=== PATIENT | male | born 1930 | race Caucasian/White ===

== ENCOUNTER → 2016-03-07 | Outpatient (CLI) | payer BC, OTHER ==
[~2016-03-07] MED LIST: ASPEC81 PO; ASPI-232 PO; ATOR10TA88 PO; CEFD1CAP14 PO; CHOL1000 PO; CPR500 OR; LCTX PO; MULT-506 PO
[2016-03-07 15:35] LABS: BASO % 0.2 %; BASO ABS # 0.02 K/uL (0-0.2); COMPLETE YES; EOS % 1.1 %; HEMATOCRIT 45.7 % (42-52); IG% 0.4 %; LYMPH % 10.8 %; LYMPH ABS # 1.16 K/uL (1.2-3.4); MEAN CELL VOLUME 88.1 fL (80-100); MEAN CORPUSCULAR HGB CONC 35.2 g/dl (32-36); MEAN PLATELET VOLUME 10.4 fL (7.4-10.4); MONO % 14.2 %; NEUT % 73.3 %; PLATELET COUNT 174 K/uL (130-400); RED BLOOD COUNT 5.19 M/uL (4.7-6.1); WHITE BLOOD COUNT 10.72 K/uL (4.8-10.8)
[2016-03-07 15:56] LABS: ALT/SGPT 20 U/L (12-78); BLOOD UREA NITROGEN 27 mg/dl (7-18); BUN/CREATININE RATIO 17.7 (10-20); CARBON DIOXIDE 22 mmol/L (21-32); CHLORIDE 105 mmol/L (98-107); CHOLESTEROL 130 mg/dl (0-200); GLUCOSE 97 mg/dl (70-99); POTASSIUM 3.8 mmol/L (3.5-5.1); SODIUM 138 mmol/L (136-145); TRIGLYCERIDES 130 mg/dl (0-150); VERY LOW DENSITY LIPOPROT CALC 26 mg/dl
[2016-03-07 16:07] LABS: ALB/GLOB RATIO 0.9 (0.9-2); ALKALINE PHOSPHATASE 69 U/L (45-117); AST/SGOT 20 U/L (15-37); CHOLESTEROL/HDL RATIO 2.5; HDL CHOLESTEROL 51 mg/dl; LDL CHOLESTEROL CALCULATED 53 mg/dl
[2016-03-07 20:00] LABS: URINE APPEARANCE CLEAR (CLEAR); URINE COLOR DK YELLOW; URINE NITRITE NEG (NEG); URINE PH 6.5 (4.5-7.5); URINE SPECIFIC GRAVITY 1.009 (1.000-1.030); UROBILINOGEN NEG (NEG); ZZUR CULT IF INDIC CLEAN CATCH YES
[2016-03-07 20:01] LABS: MANUAL MICROSCOPIC REQUIRED? NO; REVIEW REQ? YES; URINE BILIRUBIN 3+ (NEG)
--- NOTE | 2016-03-13 09:00 | CODING QUERY MEDICAL NECESSITY ---
SUPPORTING DIAGNOSIS NEEDED Dr. Allen, A supporting diagnosis is required for the test/procedure performed on this patient in order for us to be reimbursed by the patient's insurance. Please provide a supporting diagnosis for the following test/procedure listed below next to the test name along with your signature. *If there is no additional diagnosis for this patient that would support the following test/procedure please document that below next to the test/procedure. Test(s)/Procedure(s) that require a supporting diagnosis: * ([id number]) VITAMIN D ASSAY DIAGNOSIS: DATE OF SERVICE: 03/07/16 Provider Signature: Date: Thank you Wilbert Alcantara [facility] Information Management Once completed, please kindly fax back to [phone] For questions please call [phone]
== END | disposition home or self-care (01) ==
LOC: C.LAB 14:02
PROVIDERS: ATTEND Internal Medicine Geriatric Medicine
DX: N20.9 Urinary calculus, unspecified (principal); E78.5 Hyperlipidemia, unspecified; I10 Essential (primary) hypertension; I25.10 Atherosclerotic heart disease of native coronary artery without angina pectoris; K76.0 Fatty (change of) liver, not elsewhere classified; M19.90 Unspecified osteoarthritis, unspecified site; R16.1 Splenomegaly, not elsewhere classified; E55.9 Vitamin D deficiency, unspecified

== ENCOUNTER → 2016-03-14 | Outpatient (CLI) | payer BC | END | disposition home or self-care (01) | LOC: C.LAB 10:07 | PROVIDERS: ATTEND Internal Medicine Geriatric Medicine | DX: R19.7 Diarrhea, unspecified (principal) ==

== ENCOUNTER → 2016-03-26 | Outpatient (CLI) | payer BC | END | disposition home or self-care (01) | LOC: C.LAB 13:34 | PROVIDERS: ATTEND Internal Medicine Geriatric Medicine | DX: N39.0 Urinary tract infection, site not specified (principal) ==

== ENCOUNTER → 2016-05-07 | Outpatient (CLI) | payer BC | END | disposition home or self-care (01) | LOC: C.LABBC 16:54 | PROVIDERS: ATTEND Physician Assistant | DX: N39.0 Urinary tract infection, site not specified (principal) ==

== ENCOUNTER → 2016-08-13 | Day surgery (SDC) | payer BC ==
[2016-08-05 16:20] VITALS: Ht 182.9 cm; Wt 90.9 kg
[~2016-08-13] VITALS: Ht 182.9 cm; Wt 90.9 kg
[~2016-08-13] MED LIST changes: +500ML BSS 0.3ML EPI 1:1000PF IRRIG ONE; +ACETAMINOPHEN 325 MG TAB PO PRN; +AMVISC PLUS 0.8ML SYRINGE INT OCU ONE; +ATOR10TA82 PO; -ATOR10TA88 PO; +ATROPINE SULFATE 0.1 MG/ML 5ML SYR IV PRN; +AcetaZOLAMIDE 250 MG TAB PO SCH; +BETAXOLOL HCL 0.25% OP SUSP PER DROP CHARGE OPR SCH; +BRIMONIDINE TART 0.2% OP SOLN PER DROP CHARGE ONE; +BSS FLUSH ONE; -CPR500 OR; +ENDOCOAT 0.85ML SYRINGE INT OCU ONE; +EpHEDrine SULFATE INJ 50 MG/ML AMP IV PRN; +EpINEphrine INJ 1MG/ML AMP 1 MG/ML AMP ONE; +LACTATED RINGER'S 1000ML 500 ML IV SCH; +LIDOCAINE 4% OP SOLN DROP CHARGE ONE; +LIDOCAINE 4% OP SOLN DROP CHARGE OPR SCH; +LIDOCAINE HCL 1% MPF 2 ML VIAL ONE; +MIDAZOLAM HCL 1 MG/ML 2ML VIAL ONE; +MIX: 4ML BSS 1ML EPI 1:1000 PF INSTIL ONE; +MOXIFLOXACIN OPH SOLN PER DROP CHARGE ONE; +OCUCOAT 1 ML SOLN IO ONE; +POVIDONE-IODINE OP SOLN 30 ML BTL ONE; +PROPARACAINE 0.5% OP SOLN PER DROP CHARGE OPR SCH; +TOBRAMYCIN/DEXAMETHASONE OPH OINT PER APPLN CHARGE ONE
--- NOTE | 2016-08-13 06:18 | History & Physical Bridge - SC ---
H&P Re-Evaluation Bridge Note: I have examined the patient, reviewed the History & Physical and in the interval since the performance of the History & Physical I have noted the following changes of clinical significance: No changes noted
[2016-08-13] MEDS: PHENYLEPHRINE HCL 2.5% OP SOLN PER DROP CHARGE OPR SCH ×2 (06:43→06:50)
[2016-08-13] MEDS: TROPICAMIDE 1% OP SOLN PER DROP CHARGE OPR SCH ×2 (06:45→06:51)
[2016-08-13] MEDS: CYCLOPENTOLATE HCL 1% OP SOLN PER DROP CHARGE OPR SCH ×2 (06:47→06:52)
[2016-08-13] MEDS: MOXIFLOXACIN OPH SOLN PER DROP CHARGE OPR SCH ×2 (06:49→06:58)
--- NOTE | 2016-08-13 07:32 | Discharge Instructions-SurgCtr ---
Discharge Instructions Date of Service Aug 13, 2016. Visit Reason for Visit: Cataract Right Eye Discharge Discharge Diagnosis / Problem: lens implant right eye Discharge Goals Goal(s): Improve function Activity Recommendations Activity Limitations: resume your previous activity Lifting Limitations: no more than 10 pounds Exercise/Sports Limitations: gradually increase as tolerated May Resume Sexual Activity: when tolerated Shower/Bathe: tomorrow Driving or Machine Use: resume 1 day after discharge Anesthesia . Post Anesthesia Instructions: If you have had General Anesthesia or IV Sedation: * Do not drive today. * Resume driving when surgeon permits. * Do not make important decisions or sign legal documents today. * Call surgeon for: 1. Temperature elevations greater than 101 degrees F. 2. Uncontrollable pain. 3. Excessive bleeding. 4. Persistent nausea and vomiting. 5. Medication intolerance (nausea, vomiting or rash). * For nausea and vomiting use only clear liquids such as: tea, soda, bouillon until nausea subsides, then gradually increase diet as tolerated. * If you have any concerns or questions, call your surgeon's office. If physician is unavailable and it is an emergency, call 911 or go to the nearest emergency room. . Instructions / Follow-Up Instructions / Follow-Up ACTIVITY RECOMMENDATIONS: * Light activities. * Mild irritation and blurred vision are common for the first few days. * You may walk outside, read, watch television. * Redness around the white part of the eye is common. MEDICATIONS: Resume previous medications unless instructed otherwise by your surgeon. * Take white Diamox (Acetazolamide) tablet at 1 pm today. Start all eye drops at 1 pm today: * Eye drops (today and tomorrow): Prednisone - one drop in operative eye every 3 hours while awake Ofloxacin - one drop in operative eye every 3 hours while awake Ilevro - one drop in operative eye once a day SPECIAL CARE INSTRUCTIONS: * Tape plastic shield over eye to sleep at night. Call your doctor at with any concerns or problems. FOLLOW UP VISIT: Follow-up with Dr Albrecht at [place] office as scheduled. Diet Recommendations Home Diet: no limitations Procedures Procedures Performed: cataract extraction with lens implant Pending Studies Studies pending at discharge: no Medical Emergencies . Who to Call and When: Medical Emergencies: If at any time you feel your situation is an emergency, please call 911 immediately. . Non-Emergent Contact Non-Emergency issues call your: Bartender Manager Call Non-Emergent contact if: your pain is not controlled [phone] . . "Provider Documentation" section prepared by Jayce Albrecht. .
--- NOTE | 2016-08-13 07:34 | [facility] Operative Report ---
Operative Report Date of Service Aug 13, 2016. Operative Report 1. PREOPERATIVE DIAGNOSIS: Senile nuclear cataract, right eye. 2. POSTOPERATIVE DIAGNOSIS: Senile nuclear cataract, right eye. 3. PROCEDURE: Phacoemulsification of right cataract with posterior chamber lens implant, type [employer], model MX60, power +21.0 diopters. ANESTHESIA: Local standby. SURGEON: Dr. Albrecht. COMPLICATIONS: None. OPERATING TIME: 10 minutes. 4. OPERATION AND FINDINGS: DESCRIPTION OF PROCEDURE: The right pupil was dilated. The anesthetic was administered using a topical technique. The right eye was prepped and draped. A speculum was placed. A clear corneal incision was formed. The chamber was filled with Amvisc Plus and Endocoat. Epinephrine solution was used. A paracentesis was placed. A capsulorrhexis was performed. The nucleus was hydrodissected. A dense lens was removed with phacoemulsification. Time was 6.97 seconds. The aspiration unit was used to remove the cortex. The capsule was filled with Amvisc Plus. The lens implant was folded and placed into the capsule. The incision was hydrated. The Amvisc was aspirated. The wound was secure. The chamber was deep. The pupil was round. Brimonidine, TobraDex ointment and Vigamox solution were placed. The speculum was removed. The patient was returned to the Recovery Room in stable condition. I attest to the content of the Intraoperative Record and any orders documented therein. Any exceptions are noted below. The scribe's documentation has been prepared in my presence, under my direction and personally reviewed by me in its entirety. I confirm that the note above accurately reflects all work, treatment, procedures, and medical decision making performed by me. I personally scribed for Jayce Albrecht M.D. (ORALIA) on 08/13/16 at 07:34. Electronically submitted by Maryjane Rice ([email or web address]).
[2016-08-13 07:36] VITALS: TEMP 36.6
--- NOTE | 2016-08-13 07:49 | Anesthesia Progress Nt - [facility] ---
Anesthesia Post Op Note Date & Time Aug 13, 2016 at 07:48 Vital Signs Pain Intensity: 0 Vital Signs Past 12 Hours Date Time Temp Pulse Resp B/P (MAP) Pulse Ox O2 Delivery O2 Flow Rate FiO2 08/13/16 07:36 36.6 49 16 135/82 (99) 96 Room Air 08/13/16 06:48 155/90 (111) 08/13/16 06:46 190/75 (113) 08/13/16 06:32 36.4 58 20 173/122 (139) 95 Room Air Notes Mental Status: alert / awake / arousable, participated in evaluation Pt Amnestic to Procedure: Yes Nausea / Vomiting: adequately controlled Pain: adequately controlled Airway Patency, RR, SpO2: stable & adequate BP & HR: stable & adequate Hydration State: stable & adequate Anesthetic Complications: no major complications apparent
[2016-08-13 07:58] VITALS: BP 147/80; PULSE 48; O2SAT 96
== END | disposition home or self-care (01) ==
LOC: X.SURG 06:00
PROVIDERS: ATTEND Specialist
DX: H25.11 Age-related nuclear cataract, right eye (principal); Z68.27 Body mass index [BMI] 27.0-27.9, adult; Z98.890 Other specified postprocedural states; Z85.51 Personal history of malignant neoplasm of bladder

== ENCOUNTER 2016-09-06 09:58 | Emergency (ER) | payer BC ==
[~2016-09-06] VITALS: Ht 182.9 cm; Wt 94.6 kg
[~2016-09-06 09:58] MED LIST changes: -500ML BSS 0.3ML EPI 1:1000PF IRRIG ONE; -ACETAMINOPHEN 325 MG TAB PO PRN; -AMVISC PLUS 0.8ML SYRINGE INT OCU ONE; -ASPI-232 PO; -ATOR10TA82 PO; +ATOR10TA88 PO; -ATROPINE SULFATE 0.1 MG/ML 5ML SYR IV PRN; -AcetaZOLAMIDE 250 MG TAB PO SCH; -BETAXOLOL HCL 0.25% OP SUSP PER DROP CHARGE OPR SCH; -BRIMONIDINE TART 0.2% OP SOLN PER DROP CHARGE ONE; -BSS FLUSH ONE; -CEFD1CAP14 PO; -ENDOCOAT 0.85ML SYRINGE INT OCU ONE; -EpHEDrine SULFATE INJ 50 MG/ML AMP IV PRN; -EpINEphrine INJ 1MG/ML AMP 1 MG/ML AMP ONE; -LACTATED RINGER'S 1000ML 500 ML IV SCH; -LIDOCAINE 4% OP SOLN DROP CHARGE ONE; -LIDOCAINE 4% OP SOLN DROP CHARGE OPR SCH; -LIDOCAINE HCL 1% MPF 2 ML VIAL ONE; -MIDAZOLAM HCL 1 MG/ML 2ML VIAL ONE; -MIX: 4ML BSS 1ML EPI 1:1000 PF INSTIL ONE; -MOXIFLOXACIN OPH SOLN PER DROP CHARGE ONE; -OCUCOAT 1 ML SOLN IO ONE; -POVIDONE-IODINE OP SOLN 30 ML BTL ONE; -PROPARACAINE 0.5% OP SOLN PER DROP CHARGE OPR SCH; -TOBRAMYCIN/DEXAMETHASONE OPH OINT PER APPLN CHARGE ONE
[2016-09-06 10:11] VITALS: Ht 182.9 cm; Wt 94.6 kg
[2016-09-06] MEDS ORDERED: SODIUM CHLORIDE 0.9% 1000ML 1,000 ML IV STA (10:33)
[2016-09-06] MEDS ORDERED: SODIUM CHLORIDE 0.9% 250ML 250 ML IV STA (10:33)
[2016-09-06 11:23] LABS: BASO % 0.1 %; BASO ABS # 0.01 K/uL (0-0.2); COMPLETE YES; EOS % 0.7 %; HEMATOCRIT 43.1 % (42-52); IG% 0.3 %; LYMPH ABS # 0.61 K/uL (1.2-3.4); MEAN CELL VOLUME 87.6 fL (80-100); MEAN CORPUSCULAR HEMOGLOBIN 29.7 pg (25-34); MEAN CORPUSCULAR HGB CONC 33.9 g/dl (32-36); MEAN PLATELET VOLUME 9.3 fL (7.4-10.4); MONO % 10.7 %; NEUT % 80.2 %; PLATELET COUNT 113 K/uL (130-400); RED BLOOD COUNT 4.92 M/uL (4.7-6.1); WHITE BLOOD COUNT 7.64 K/uL (4.8-10.8)
--- NOTE | 2016-09-06 11:24 | EMERGENCY ROOM VISIT NOTE ---
History Report prepared by Vanessa: Татьяна Morfin Under the Supervision of: Dr. Kary Moody M.D. First contact with patient: 10:18 Chief Complaint: DEHYDRATION Stated Complaint: DIARRHEA, DEHYDRATION Nursing Triage Summary: pt reports he was in [place] on thursday to get stones removed from bladder. has santiago bladder and has hx of bladder ca. had bladder reconstructed in [facility] . had test done a couple months ago showed stones in bladder. on strated severe diarrhea every 15-20 minutes. developed slight fever 102 . has not been eating well. called urologist told to come to ed. took iodium and kaopectate. has been losing body fluids concerned for dehydration History of Present Illness The patient is a 86 year old male who presents to the Emergency Room with complaints of worsening dehydration that started 2 days ago. The patient states that he has been experiencing persistent diarrhea for the past 2 days. The patient has been taking Imodium but he switched to Kaopectate because the Imodium was not working. The patient states that he had bladder cancer in 2007. He had the neoplasm removed and his bladder reconstructed at that time at the [facility]. Since then, the patient goes to the [facility] once a year for a CT scan, blood work, and x-rays. He states that he talked to Dr. Chang, his doctor at the [facility], a couple months ago and he setup to have his tests done at [place] instead of the [facility] because it is closer. When he had testing done several months ago at [place], they found stones in his bladder. He had the stones removed at [place] 3 days ago. He states that he went home after the procedure and felt well. He started to experience diarrhea the morning after the procedure. He started experiencing a fever after starting to experience diarrhea. The patient states that he recorded a fever of 102. He took ibuprofen to relieve the fever. The fever persisted for 24 hours and he has not experienced a fever since yesterday. He states that he diarrhea has persisted without improvement. He states that he is having bowel movements every 15-20 minutes. He denies any blood in his bowel movements. He also denies chest pain, shortness of breath, abdominal pain, and joint aches. The patient was started on Cipro following the procedure. He adds that he had a Martinez catheter placed for the procedure and it is supposed to be removed tomorrow. The patient states that he is also experiencing right arm pain, but he thinks that is secondary to sleeping on it. The patient has a history of kidney stones and diverticulitis. He denies any history of kidney infections, MIs, strokes, hypertension, and diabetes. The patient is a former smoker and states that he quit smoking in 1968. Source of History: patient Onset: 2 days ago Position: other (global) Quality: other (dehydration) Timing: worsening Associated Symptoms: + fevers, + diarrhea, No chest pain, No SOB, No abdominal pain Note: right arm pain, no joint aches Review of Systems See HPI for pertinent positives & negatives. A total of 10 systems reviewed and were otherwise negative. Past Medical & Surgical Medical Problems: (1) Bladder cancer (2) Kidney stones Family History Diabetes mellitus FH: cancer Social History Smoking Status: Former Smoker Alcohol Use: occasionally Drug Use: none Marital Status: Housing Status: lives with family Occupation Status: retired Current/Historical Medications Scheduled Aspirin (Aspir-81), 1 TAB PO QPM Atorvastatin (Lipitor), 10 MG PO QPM Cefdinir (Omnicef), 300 MG PO Q12H Cholecalciferol (Vitamin D3), 1 TAB PO QPM Lactobacillus Acidophilus (Floranex), 1 TAB PO BIDM Multivitamin (Multivitamin), 1 TAB PO DAILY Allergies Coded Allergies: No Known Allergies (Verified , 09/06/16) Physical Exam Vital Signs Date Time Temp Pulse Resp B/P (MAP) Pulse Ox O2 Delivery O2 Flow Rate FiO2 09/06/16 14:38 76 20 148/71 95 Room Air 09/06/16 13:56 37.5 09/06/16 12:44 66 16 143/64 95 Room Air 09/06/16 11:49 64 09/06/16 11:44 67 18 149/81 95 Room Air 09/06/16 10:11 37.1 93 18 148/80 96 Room Air Physical Exam Vital signs reviewed. General: Well-appearing male, in no significant distress. HEENT: No scleral icterus, PERRLA, neck supple. Atraumatic. Cardiovascular: Regular rate and rhythm, no extra sounds. Pulmonary: Clear to auscultation bilaterally, normal work of breathing. Abdomen: Soft, nontender, nondistended, positive bowel sounds. Musculoskeletal: Atraumatic, no peripheral edema. Genitourinary: Martinez catheter in place. Neurologic: Patient awake alert and oriented x 3 Skin: Warm, dry, no rash Medical Decision & Procedures ER Provider Diagnostic Interpretation: Radiology results as stated below per my review and radiologist interpretation: PA CHEST RADIOGRAPH AND UPRIGHT AND SUPINE AP RADIOGRAPHS OF THE ABDOMEN FINDINGS: Lung volumes are normal. There is no consolidation to suggest pneumonia. Cardiac size is at the upper limits of normal. There is no evidence of pulmonary edema. The appearance of the chest is unchanged. There is no free air. There are lower abdominal and pelvic surgical clips. A catheter projects over the pelvis. There is no evidence for a bowel obstruction. Colonic air-fluid levels are noted on upright projections. IMPRESSION: 1. No free air or evidence of bowel obstruction. 2. No acute cardiopulmonary findings. Electronically signed by: Deni Kim M.D. 09/06/2016 12:20 PM Dictated Date/Time: 09/06/2016 12:18 PM Laboratory Results 09/06/16 11:10 Red Blood Count 4.92, Mean Corpuscular Volume 87.6, Mean Corpuscular Hemoglobin 29.7, Mean Corpuscular Hemoglobin Concent 33.9, Mean Platelet Volume 9.3, Neutrophils (%) (Auto) 80.2, Lymphocytes (%) (Auto) 8.0, Monocytes (%) (Auto) 10.7, Eosinophils (%) (Auto) 0.7, Basophils (%) (Auto) 0.1, Neutrophils # (Auto ) 6.13, Lymphocytes # (Auto) 0.61, Monocytes # (Auto) 0.82, Eosinophils # (Auto ) 0.05, Basophils # (Auto) 0.01 09/06/16 11:10 Test 09/06/16 11:02 09/06/16 11:10 09/06/16 11:25 09/06/16 12:40 Bedside Lactic Acid Venous 0.72 mmol/L (0.90-1.70) White Blood Count 7.64 K/uL (4.8-10.8) Red Blood Count 4.92 M/uL (4.7-6.1) Hemoglobin 14.6 g/dL (14.0-18.0) Hematocrit 43.1 % (42-52) Mean Corpuscular Volume 87.6 fL (80-100) Mean Corpuscular Hemoglobin 29.7 pg (25-34) Mean Corpuscular Hemoglobin Concent 33.9 g/dl (32-36) Platelet Count 113 K/uL (130-400) Mean Platelet Volume 9.3 fL (7.4-10.4) Neutrophils (%) (Auto) 80.2 % Lymphocytes (%) (Auto) 8.0 % Monocytes (%) (Auto) 10.7 % Eosinophils (%) (Auto) 0.7 % Basophils (%) (Auto) 0.1 % Neutrophils # (Auto) 6.13 K/uL (1.4-6.5) Lymphocytes # (Auto) 0.61 K/uL (1.2-3.4) Monocytes # (Auto) 0.82 K/uL (0.11-0.59) Eosinophils # (Auto) 0.05 K/uL (0-0.5) Basophils # (Auto) 0.01 K/uL (0-0.2) RDW Standard Deviation 45.3 fL (36.4-46.3) RDW Coefficient of Variation 14.1 % (11.5-14.5) Immature Granulocyte % (Auto) 0.3 % Immature Granulocyte # (Auto) 0.02 K/uL (0.00-0.02) Anion Gap 4.0 mmol/L (3-11) Est Creatinine Clear Calc Drug Dose 43.8 ml/min Estimated GFR () 48.8 Estimated GFR (Non- 42.1 BUN/Creatinine Ratio 19.1 (10-20) Calcium Level 8.5 mg/dl (8.5-10.1) Magnesium Level 1.9 mg/dl (1.8-2.4) Total Bilirubin 1.4 mg/dl (0.2-1) Direct Bilirubin 0.3 mg/dl (0-0.2) Aspartate Amino Transf (AST/SGOT) 22 U/L (15-37) Alanine Aminotransferase (ALT/SGPT) 23 U/L (12-78) Alkaline Phosphatase 54 U/L (45-117) Total Protein 6.4 gm/dl (6.4-8.2) Albumin 3.4 gm/dl (3.4-5.0) Urine RBC (Auto) /hpf (0-4) Urine Hyaline Casts (Auto) /lpf (0-5) Urine Crystals (NONE PRSENT) Urine Amorphous Sediment PRESENT (NONE PRSENT) Urine Pathogenic Casts /lpf (0) Urine Mucus PRESENT (NONE PRSENT) Urine Yeast (Auto) (NONE PRSENT) Urine Color GREEN Urine Appearance TURBID (CLEAR) Urine pH 6.0 (4.5-7.5) Urine Specific [place] 1.010 (1.000-1.030) Urine Protein 1+ (NEG) Urine Glucose (UA) NEG (NEG) Urine Ketones NEG (NEG) Urine Occult Blood 3+ (NEG) Urine Nitrite NEG (NEG) Urine Bilirubin 3+ (NEG) Urine Urobilinogen NEG (NEG) Urine Leukocyte Esterase MODERATE (NEG) Urine RBC 10-30 /hpf (0-4) Urine WBC >30 /hpf (0-5) Urine Epithelial Cells 0-5 /lpf (0-5) Urine Bacteria 4+ (NEG) Urine Other Urine Yeast PRESENT (NONE PRSENT) Laboratory results per my review. Medications Administered Medications (Trade) Dose Ordered Sig/Ml Route Start Time Stop Time Status Last Admin Dose Admin Sodium Chloride 1,000 ml @ 150 mls/hr Q6H40M STAT IV 09/06/16 10:33 09/06/16 17:12 09/06/16 11:43 150 MLS/HR Sodium Chloride 250 ml @ 999 mls/hr Q16M STAT IV 09/06/16 10:33 09/06/16 10:48 DC 09/06/16 10:55 999 MLS/HR Ceftriaxone Sodium (Rocephin Inj) 1 gm NOW STAT IV 09/06/16 13:52 09/06/16 13:54 DC 09/06/16 14:46 1 GM Acetaminophen (Tylenol Tab) 650 mg NOW STAT PO 09/06/16 13:52 09/06/16 13:54 DC 09/06/16 14:46 650 MG ECG Indication: back/shoulder pain Rate (beats per minute): 67 Rhythm: normal sinus Findings: PVC, no acute ischemic change, no ectopy ED Course 1033: Ordered Sodium Chloride 250 ml @ 999 mls/hr IV, Sodium Chloride 1000 ml @ 150 mls/hr IV 1036: Past medical records reviewed. The patient was evaluated in room A4. A complete history and physical examination was performed. 1336: I reassessed the patient. I am going to call his urologist. We are going to take out his Martinez catheter. He is going to try to provide a stool specimen. His temperature was 37.5. 1352: Ordered Tylenol Tab 650 mg PO, Rocephin Inj 1 gm IV 1359: I reviewed the patient's case with Dr. Nicholas Bhakta - Urology Resident. He recommended covering the patient for infection and having him follow-up this week. 1447: Upon reevaluation, the patient appeared to have improvement of his symptoms. I discussed findings with him. He verbalized agreement of the treatment plan. He was discharged home. Medical Decision Differentials include C Diff colitis, viral illness, dehydration, GI bleed, medication effect, colitis. This patient was evaluated and appeared to be in no significant distress. Patient initially had no fever in the emergency department. He has complained of periodic fevers at home. IV access was obtained and laboratory work was drawn. Lactic acid is normal. Blood cultures are pending. Patient is a normal white blood cell count. Urinalysis is concerning for contamination as well as infection, repeat urinalysis was obtained and is consistent. Patient did spike low-grade temperature around 37 5 in the ER. He was able to provide a stool sample and those studies are pending. I did speak with Dr. Bhakta, the urology resident for Dr. Ceron at [facility]. After review of previous urine cultures, the patient will be given IV ceftriaxone 1 g and given Omnicef 300 mg twice daily for 7 days. His Martinez catheter will be removed as it is due for removal tomorrow. He will be able to self catheterize as before 6 times daily. He'll use Tylenol as needed for pain or fever and return to the ER for worsening of symptoms or any medical concerns. Medication Reconcilliation Current Medication List: was personally reviewed by me Blood Pressure Screening Patient's blood pressure: Elevated blood pressure Blood pressure disposition: Referred to PCP Consults Time Called: [id number] Consulting Physician: Dr. Nicholas Bhakta - Urology Resident Returned Call: [phone] I reviewed the patient's case with Dr. Nicholas Bhakta - Urology Resident. He recommended covering the patient for infection and having him follow-up this week. Impression Primary Impression: UTI (urinary tract infection) Additional Impressions: Diarrhea Fever Scribe Attestation The scribe's documentation has been prepared under my direction and personally reviewed by me in its entirety. I confirm that the note above accurately reflects all work, treatment, procedures, and medical decision making performed by me. Departure Information Dispostion Home / Self-Care Prescriptions Cefdinir (Omnicef) 300 Mg Cap 300 MG PO Q12H for 7 Days, #14 CAP Prov: Kary Moody M.D. 09/06/16 Referrals Anil Allen M.D. (PCP) Forms HOME CARE DOCUMENTATION FORM, IMPORTANT VISIT INFORMATION, WORK / SCHOOL INSTRUCTIONS Patient Instructions My [facility] Additional Instructions Diagnosis: Post procedural UTI, fever Omnicef 300 mg twice daily for 7 days. Continue with catheterization 6 times daily. Contact urology this week for follow-up. Tylenol 650 mg every 6 hours as needed for fever. If symptoms do not improve in the next 24 hours, contact your urologist at [facility]. Return to the emergency department for worsening of symptoms or any medical concerns. Problem Qualifiers Primary Impression: UTI (urinary tract infection) Urinary tract infection type: site unspecified Hematuria presence: with hematuria Qualified Codes: N39.0 - Urinary tract infection, site not specified ; R31.9 - Hematuria, unspecified Additional Impressions: Diarrhea Diarrhea type: unspecified type Qualified Codes: R19.7 - Diarrhea, unspecified Fever Fever type: unspecified Qualified Codes: R50.9 - Fever, unspecified
[2016-09-06 11:49] LABS: URINE APPEARANCE TURBID (CLEAR); URINE COLOR DK YELLOW; URINE NITRITE NEG (NEG); URINE PH 6.5 (4.5-7.5); URINE SPECIFIC GRAVITY 1.011 (1.000-1.030); UROBILINOGEN NEG (NEG)
[2016-09-06 11:52] LABS: MANUAL MICROSCOPIC REQUIRED? YES; REVIEW REQ? NO; URINE BILIRUBIN 3+ (NEG)
[2016-09-06 12:00] LABS: BUN/CREATININE RATIO 19.1 (10-20); CALCIUM 8.5 mg/dl (8.5-10.1); CREATININE 1.5 mg/dl (0.60-1.40); MAGNESIUM 1.9 mg/dl (1.8-2.4); POTASSIUM 3.9 mmol/L (3.5-5.1)
[2016-09-06 12:03] LABS: URINE BACTERIA 3+ (NEG); URINE RBC >30 /hpf (0-4); URINE WBC >30 /hpf (0-5)
[2016-09-06 12:04] LABS: URINE AMORPHOUS SEDIMENT PRESENT (NONE PRSENT); URINE MUCUS PRESENT (NONE PRSENT); ZZURINE CULT IF INDIC CATH YES
[2016-09-06] MEDS ORDERED: ASPI-232 PO (12:16)
--- NOTE | 2016-09-06 12:22 | DIAGNOSTIC IMAGING REPORT ---
PA CHEST RADIOGRAPH AND UPRIGHT AND SUPINE AP RADIOGRAPHS OF THE ABDOMEN CLINICAL HISTORY: Diarrhea. COMPARISON STUDY: Chest radiograph October 04, [address] of the abdomen and pelvis May 17, 2015. FINDINGS: Lung volumes are normal. There is no consolidation to suggest pneumonia. Cardiac size is at the upper limits of normal. There is no evidence of pulmonary edema. The appearance of the chest is unchanged. There is no free air. There are lower abdominal and pelvic surgical clips. A catheter projects over the pelvis. There is no evidence for a bowel obstruction. Colonic air-fluid levels are noted on upright projections. IMPRESSION: 1. No free air or evidence of bowel obstruction. 2. No acute cardiopulmonary findings. Electronically signed by: Deni Kim M.D. 09/06/2016 12:20 PM Dictated Date/Time: 09/06/2016 12:18 PM
[2016-09-06 13:23] LABS: MANUAL MICROSCOPIC REQUIRED? YES; URINE APPEARANCE TURBID (CLEAR); URINE BILIRUBIN 3+ (NEG); URINE COLOR GREEN; URINE NITRITE NEG (NEG); UROBILINOGEN NEG (NEG)
[2016-09-06 13:32] LABS: REVIEW REQ? NO; ZZURINE CULT IF INDIC CATH YES
[2016-09-06 13:33] LABS: URINE BACTERIA 4+ (NEG); URINE WBC >30 /hpf (0-5)
[2016-09-06] MEDS ORDERED: CEFTRIAXONE SOD INJ 1 GM ADDVIAL IV STA (13:52)
[2016-09-06] MEDS ORDERED: ACETAMINOPHEN 325 MG TAB PO STA (13:52)
[2016-09-06 13:56] VITALS: TEMP 37.5
[2016-09-06] MEDS ORDERED: CEFD1CAP14 PO (14:39)
[2016-09-06 15:27] VITALS: BP 144/68; PULSE 77; O2SAT 95
== END 2016-09-06 15:30 | disposition home or self-care (01) ==
LOC: C.EDB 10:00 → C.EDA 15:30
DX: N39.0 Urinary tract infection, site not specified (principal); R19.7 Diarrhea, unspecified; R50.9 Fever, unspecified; Z83.3 Family history of diabetes mellitus; Z87.891 Personal history of nicotine dependence; Z79.82 Long term (current) use of aspirin

== ENCOUNTER → 2016-11-05 | Day surgery (SDC) | payer BC ==
[2016-08-28 07:57] VITALS: BMI 27.0
[2016-10-16 11:38] VITALS: Ht 182.9 cm; Wt 90.9 kg
[~2016-11-05] VITALS: Ht 182.9 cm; Wt 90.9 kg
[~2016-11-05] MED LIST changes: +500ML BSS 0.3ML EPI 1:1000PF IRRIG ONE; +ACETAMINOPHEN 325 MG TAB PO PRN; +AMVISC PLUS 0.8ML SYRINGE INT OCU ONE; -ASPEC81 PO; +ASPI-232 PO; +ATROPINE SULFATE 0.1 MG/ML 5ML SYR IV PRN; +AcetaZOLAMIDE 250 MG TAB PO SCH; +BETAXOLOL HCL 0.25% OP SUSP PER DROP CHARGE OPL SCH; +BRIMONIDINE TART 0.2% OP SOLN PER DROP CHARGE ONE; +BSS FLUSH ONE; +ENDOCOAT 0.85ML SYRINGE INT OCU ONE; +EpHEDrine SULFATE INJ 50 MG/ML AMP IV PRN; +EpINEphrine INJ 1MG/ML AMP 1 MG/ML AMP ONE; +LACTATED RINGER'S 1000ML 500 ML IV SCH; +LIDOCAINE 4% OP SOLN DROP CHARGE ONE; +LIDOCAINE 4% OP SOLN DROP CHARGE OPL SCH; +LIDOCAINE HCL 1% MPF 2 ML VIAL ONE; +MIX: 4ML BSS 1ML EPI 1:1000 PF INSTIL ONE; +MOXIFLOXACIN OPH SOLN PER DROP CHARGE ONE; +OCUCOAT 1 ML SOLN IO ONE; +POVIDONE-IODINE OP SOLN 30 ML BTL ONE; +PROPARACAINE 0.5% OP SOLN PER DROP CHARGE OPL SCH; +TOBRAMYCIN/DEXAMETHASONE OPH OINT PER APPLN CHARGE ONE
[2016-11-05] MEDS: PHENYLEPHRINE HCL 2.5% OP SOLN PER DROP CHARGE OPL SCH ×2 (09:26→09:32)
[2016-11-05] MEDS: TROPICAMIDE 1% OP SOLN PER DROP CHARGE OPL SCH ×2 (09:27→09:33)
[2016-11-05] MEDS: CYCLOPENTOLATE HCL 1% OP SOLN PER DROP CHARGE OPL SCH ×2 (09:28→09:34)
[2016-11-05] MEDS: MOXIFLOXACIN OPH SOLN PER DROP CHARGE OPL SCH ×2 (09:29→09:40)
--- NOTE | 2016-11-05 10:05 | Discharge Instructions-SurgCtr ---
Discharge Instructions Date of Service Nov 05, 2016. Visit Reason for Visit: Left Cataract Eye Discharge Discharge Diagnosis / Problem: lens implant left eye Discharge Goals Goal(s): Improve function Activity Recommendations Activity Limitations: resume your previous activity Lifting Limitations: no more than 10 pounds Exercise/Sports Limitations: gradually increase as tolerated May Resume Sexual Activity: when tolerated Shower/Bathe: tomorrow Driving or Machine Use: resume 1 day after discharge Anesthesia . Post Anesthesia Instructions: If you have had General Anesthesia or IV Sedation: * Do not drive today. * Resume driving when surgeon permits. * Do not make important decisions or sign legal documents today. * Call surgeon for: 1. Temperature elevations greater than 101 degrees F. 2. Uncontrollable pain. 3. Excessive bleeding. 4. Persistent nausea and vomiting. 5. Medication intolerance (nausea, vomiting or rash). * For nausea and vomiting use only clear liquids such as: tea, soda, bouillon until nausea subsides, then gradually increase diet as tolerated. * If you have any concerns or questions, call your surgeon's office. If physician is unavailable and it is an emergency, call 911 or go to the nearest emergency room. . Instructions / Follow-Up Instructions / Follow-Up ACTIVITY RECOMMENDATIONS: * Light activities. * Mild irritation and blurred vision are common for the first few days. * You may walk outside, read, watch television. * Redness around the white part of the eye is common. MEDICATIONS: Resume previous medications unless instructed otherwise by your surgeon. * Take white Diamox (Acetazolamide) tablet at 1 pm today. Start all eye drops at 1 pm today: * Eye drops (today and tomorrow): Prednisone - one drop in operative eye every 3 hours while awake Ofloxacin - one drop in operative eye every 3 hours while awake Ilevro - one drop in operative eye once daily SPECIAL CARE INSTRUCTIONS: * Tape plastic shield over eye to sleep at night. Call your doctor at with any concerns or problems. FOLLOW UP VISIT: Follow-up with Dr Albrecht at [place] office as scheduled. Diet Recommendations Home Diet: no limitations Procedures Procedures Performed: cataract extraction with lens implant Pending Studies Studies pending at discharge: no Medical Emergencies . Who to Call and When: Medical Emergencies: If at any time you feel your situation is an emergency, please call 911 immediately. . Non-Emergent Contact Non-Emergency issues call your: Yeast Culture Operator Call Non-Emergent contact if: your pain is not controlled [phone] . . "Provider Documentation" section prepared by Jayce Albrecht. .
--- NOTE | 2016-11-05 10:06 | [facility] Operative Report ---
Operative Report Date of Service Nov 05, 2016. Operative Report 1. PREOPERATIVE DIAGNOSIS: Senile nuclear cataract, left eye. 2. POSTOPERATIVE DIAGNOSIS: Senile nuclear cataract, left eye. 3. PROCEDURE: Phacoemulsification of left cataract with posterior chamber lens implant, type [employer], model MX60, power +22.0 diopters. ANESTHESIA: Local standby. SURGEON: Dr. Albrecht. COMPLICATIONS: None. OPERATING TIME: 10 minutes. 4. OPERATION AND FINDINGS: DESCRIPTION OF PROCEDURE: The left pupil was dilated. The anesthetic was administered using a topical technique. The left eye was prepped and draped. A speculum was placed. A clear corneal incision was formed. The chamber was filled with Amvisc Plus and Endocoat. Epinephrine solution was used. A paracentesis was placed. A capsulorrhexis was performed. The nucleus was hydrodissected. The lens was removed with phacoemulsification. Time was 5.60 seconds. The aspiration unit was used to remove the cortex. The capsule was filled with Amvisc Plus. The lens implant was folded and placed into the capsule. The incision was hydrated. The Amvisc was aspirated. The wound was secure. The chamber was deep. The pupil was round. Brimonidine, TobraDex ointment and Vigamox solution were placed. The speculum was removed. The patient was returned to the Recovery Room in stable condition. I attest to the content of the Intraoperative Record and any orders documented therein. Any exceptions are noted below. The scribe's documentation has been prepared in my presence, under my direction and personally reviewed by me in its entirety. I confirm that the note above accurately reflects all work, treatment, procedures, and medical decision making performed by me. I personally scribed for Jayce Albrecht M.D. (ORALIA) on 11/05/16 at 10:06. Electronically submitted by Maryjane Rice ([email or web address]).
[2016-11-05 10:09] VITALS: TEMP 36.5
--- NOTE | 2016-11-05 10:23 | Anesthesia Progress Nt - [facility] ---
Anesthesia Post Op Note Date & Time Nov 05, 2016 at 10:23 Vital Signs Pain Intensity: 0 Vital Signs Past 12 Hours Date Time Temp Pulse Resp B/P (MAP) Pulse Ox O2 Delivery O2 Flow Rate FiO2 11/05/16 10:09 36.5 64 18 134/75 (94) 95 Room Air 11/05/16 08:48 36.6 67 18 142/85 (104) 96 Room Air Notes Mental Status: alert / awake / arousable, participated in evaluation Pt Amnestic to Procedure: Yes Nausea / Vomiting: adequately controlled Pain: adequately controlled Airway Patency, RR, SpO2: stable & adequate BP & HR: stable & adequate Hydration State: stable & adequate Anesthetic Complications: no major complications apparent
[2016-11-05 10:42] VITALS: BP 135/76; PULSE 60; O2SAT 95
== END | disposition home or self-care (01) ==
LOC: X.SURG 08:20
PROVIDERS: ATTEND Specialist
DX: H25.12 Age-related nuclear cataract, left eye (principal); I10 Essential (primary) hypertension

== ENCOUNTER → 2017-05-26 | Outpatient (CLI) | payer BC ==
[~2017-05-26] MED LIST changes: -500ML BSS 0.3ML EPI 1:1000PF IRRIG ONE; -ACETAMINOPHEN 325 MG TAB PO PRN; -AMVISC PLUS 0.8ML SYRINGE INT OCU ONE; +ATOR10TA82 PO; -ATOR10TA88 PO; -ATROPINE SULFATE 0.1 MG/ML 5ML SYR IV PRN; -AcetaZOLAMIDE 250 MG TAB PO SCH; -BETAXOLOL HCL 0.25% OP SUSP PER DROP CHARGE OPL SCH; -BRIMONIDINE TART 0.2% OP SOLN PER DROP CHARGE ONE; -BSS FLUSH ONE; -ENDOCOAT 0.85ML SYRINGE INT OCU ONE; -EpHEDrine SULFATE INJ 50 MG/ML AMP IV PRN; -EpINEphrine INJ 1MG/ML AMP 1 MG/ML AMP ONE; -LACTATED RINGER'S 1000ML 500 ML IV SCH; -LIDOCAINE 4% OP SOLN DROP CHARGE ONE; -LIDOCAINE 4% OP SOLN DROP CHARGE OPL SCH; -LIDOCAINE HCL 1% MPF 2 ML VIAL ONE; -MIX: 4ML BSS 1ML EPI 1:1000 PF INSTIL ONE; -MOXIFLOXACIN OPH SOLN PER DROP CHARGE ONE; -OCUCOAT 1 ML SOLN IO ONE; -POVIDONE-IODINE OP SOLN 30 ML BTL ONE; -PROPARACAINE 0.5% OP SOLN PER DROP CHARGE OPL SCH; -TOBRAMYCIN/DEXAMETHASONE OPH OINT PER APPLN CHARGE ONE
[2017-05-26 12:34] LABS: BLOOD UREA NITROGEN 24 mg/dl (7-18); CARBON DIOXIDE 27 mmol/L (21-32); GLUCOSE 90 mg/dl (70-99); POTASSIUM 4.6 mmol/L (3.5-5.1); SODIUM 140 mmol/L (136-145)
== END | disposition home or self-care (01) ==
LOC: C.LAB1850 10:09
PROVIDERS: ATTEND Nurse Practitioner
DX: C61 Malignant neoplasm of prostate (principal); C67.1 Malignant neoplasm of dome of bladder

== ENCOUNTER → 2017-09-08 | Outpatient (CLI) | payer BC | END | disposition home or self-care (01) | LOC: C.LAB 13:15 | PROVIDERS: ATTEND Physician Assistant Medical | DX: R10.9 Unspecified abdominal pain (principal) ==

== ENCOUNTER 2017-09-19 20:24 | Inpatient (IN) | payer BC, OTHER ==
[~2017-09-19] VITALS: Ht 182.9 cm; Wt 92.1 kg
[2017-09-19] MEDS ORDERED: SODIUM CHLORIDE 0.9% 1000ML 1,000 ML IV STA (20:47)
[2017-09-19] MEDS ORDERED: PIPERACILLIN/TAZOBACTAM 4.5 GM/100ML D5W IV STA (20:59)
--- NOTE | 2017-09-19 21:11 | DIAGNOSTIC IMAGING REPORT ---
SINGLE VIEW CHEST CLINICAL HISTORY: Sepsis. FINDINGS: An AP, portable, upright chest radiograph is compared to study dated 09/06/2016 and correlated with chest CT dated 05/18/2013. The examination is degraded by portable technique and patient rotation. The heart is enlarged. The pulmonary vasculature is noncongested. There is mild bibasilar atelectasis. The lungs and pleural spaces are otherwise clear. No pneumothorax is seen. The skeletal structures are osteopenic. The bony thorax is grossly intact. IMPRESSION: Cardiomegaly with no acute cardiopulmonary abnormality. Electronically signed by: Brody Gandhi M.D. 09/19/2017 9:10 PM Dictated Date/Time: 09/19/2017 9:09 PM
[2017-09-19 21:35] LABS: BASO % 0.1 %; BASO ABS # 0.02 K/uL (0-0.2); EOS % 0.3 %; EOS ABS # 0.04 K/uL (0-0.5); HEMOGLOBIN 15.5 g/dL (14.0-18.0); IG# 0.06 K/uL (0.00-0.02); LYMPH % 6.2 %; LYMPH ABS # 0.88 K/uL (1.2-3.4); MEAN CELL VOLUME 87.4 fL (80-100); MEAN CORPUSCULAR HEMOGLOBIN 30.1 pg (25-34); MEAN CORPUSCULAR HGB CONC 34.4 g/dl (32-36); MEAN PLATELET VOLUME 9.9 fL (7.4-10.4); MONO ABS # 1.42 K/uL (0.11-0.59); NEUT ABS # 11.79 K/uL (1.4-6.5); PLATELET COUNT 198 K/uL (130-400); RED CELL DISTRIBUTION WIDTH CV 13.9 % (11.5-14.5); RED CELL DISTRIBUTION WIDTH SD 43.9 fL (36.4-46.3); WHITE BLOOD COUNT 14.21 K/uL (4.8-10.8)
[2017-09-19 21:45] LABS: PTT PATIENT 30.2 SECONDS (21.0-31.0)
[2017-09-19 21:54] LABS: ALBUMIN 3.8 gm/dl (3.4-5.0); CREATININE 1.49 mg/dl (0.60-1.40); TOTAL PROTEIN 7.6 gm/dl (6.4-8.2)
--- NOTE | 2017-09-19 22:52 | EMERGENCY ROOM VISIT NOTE ---
History Report prepared by Vanessa: Virginia Bell Under the Supervision of: Dr. Jamil Ramirez M.D. First contact with patient: 20:41 Chief Complaint: URINARY SYMPTOMS Stated Complaint: FEVER, UTI History of Present Illness The patient is an 87 year old male who presents to the Emergency Room with complaints of persistent fever starting 2 days ago. The patient has had a high fever and shakes for the past 2 days. He has these symptoms with UTIs. His PCP recommended he come to the ED if his fever does not improve. 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 He has been in remission since then. He self catheterizes every 4 hours. He intermittently develops UTIs. He has been taking Cipro for the past 2 days which is what he typically takes for his UTIs. His urine has not appeared infected. He was diaphoretic last night. He changed shirts 4-5 times because of the diaphoresis. He felt nauseous today with dry heaving. He has had a decreased appetite. He denies any cough, vomiting, diarrhea, rash, headache, chest pain, SOB, back pain, leg pain, or leg swelling. He has not had a bowel movement in a couple days. He has a history of high cholesterol. He is on baby aspirin. He is not on any blood thinners. He had a UTI 3 weeks ago for which he took 4 days of Cipro. His fever resolved after a day. He denies any tick bites. He has not history of diabetes or heart disease. Source of History: patient, spouse/significant other Onset: 2 days ago Position: other (temperature) Quality: other (fever) Timing: other (persistent) Associated Symptoms: + diaphoresis, + nausea, No headache, No cough, No chest pain, No SOB, No vomiting, No back pain, No diarrhea, No rash Note: Pt reports shaking. Review of Systems See HPI for pertinent positives & negatives. A total of 10 systems reviewed and were otherwise negative. Past Medical & Surgical Medical Problems: (1) Bladder cancer (2) Kidney stones Old medical records were reviewed. Nurse's notes were reviewed and I agree with. Family History Diabetes mellitus FH: cancer Social History Smoking Status: Never Smoker Alcohol Use: occasionally Drug Use: none Marital Status: Housing Status: lives with family Occupation Status: retired Current/Historical Medications Scheduled Aspirin (Aspir-81), 81 MG PO QPM Atorvastatin (Lipitor), 10 MG PO QPM Cholecalciferol (Vitamin D3), 1,000 UNITS PO QPM Multivitamin (Multivitamin), 1 TAB PO DAILY Allergies Coded Allergies: No Known Allergies (Verified , 11/05/16) Physical Exam Vital Signs Date Time Temp Pulse Resp B/P (MAP) Pulse Ox O2 Delivery O2 Flow Rate FiO2 09/19/17 22:18 80 18 160/78 09/19/17 21:14 98 09/19/17 20:33 37.6 100 18 131/88 96 Room Air Physical Exam General: Non-ill appearing older male in no acute distress. HEENT: Normal cephalic atraumatic. Pupils are equal round and reactive to light. Extraocular movements are intact. Oropharynx is pink with moist mucous membranes. No swelling of the mouth lips or tongue. Neck: Supple with a midline trachea. No meningeal signs or stiffness, no JVD or bruits. No Stridor. Chest: Clear to auscultation bilaterally. No wheezes or rhonchi. No increased work of breathing. Heart: Regular rate with irregular beats, no murmur. Abdomen: Soft nontender, nondistended without rebound guarding or rigidity. Extremities: No cyanosis clubbing or edema. No calf tenderness or assymetry Spine/Back. Non tender to palpation. No CVA tenderness Skin: Good turgor without rashes. Neurologic exam: Cranial nerves two through 12 are intact. Motor and sensation are intact and symmetrical throughout. Urine sample appears to be dark and somewhat cloudy. Medical Decision & Procedures ER Provider Diagnostic Interpretation: X-ray results as stated below per interpretation by me and the radiologist: SINGLE VIEW CHEST CLINICAL HISTORY: Sepsis. FINDINGS: An AP, portable, upright chest radiograph is compared to study dated 09/06/2016 and correlated with chest CT dated 05/18/2013. The examination is degraded by portable technique and patient rotation. The heart is enlarged. The pulmonary vasculature is noncongested. There is mild bibasilar atelectasis. The lungs and pleural spaces are otherwise clear. No pneumothorax is seen. The skeletal structures are osteopenic. The bony thorax is grossly intact. IMPRESSION: Cardiomegaly with no acute cardiopulmonary abnormality. Electronically signed by: Brody Gandhi M.D. 09/19/2017 9:10 PM Dictated Date/Time: 09/19/2017 9:09 PM Laboratory Results 09/19/17 21:15 Red Blood Count 5.15, Mean Corpuscular Volume 87.4, Mean Corpuscular Hemoglobin 30.1, Mean Corpuscular Hemoglobin Concent 34.4, Mean Platelet Volume 9.9, Neutrophils (%) (Auto) 83.0, Lymphocytes (%) (Auto) 6.2, Monocytes (%) (Auto) 10.0, Eosinophils (%) (Auto) 0.3, Basophils (%) (Auto) 0.1, Neutrophils # (Auto ) 11.79, Lymphocytes # (Auto) 0.88, Monocytes # (Auto) 1.42, Eosinophils # (Auto ) 0.04, Basophils # (Auto) 0.02 09/19/17 21:15 Test 09/19/17 20:55 09/19/17 21:15 09/19/17 21:26 Urine Color DK YELLOW Urine Appearance CLOUDY (CLEAR) Urine pH 6.5 (4.5-7.5) Urine Specific [place] 1.014 (1.000-1.030) Urine Protein 1+ (NEG) Urine Glucose (UA) NEG (NEG) Urine Ketones TRACE (NEG) Urine Occult Blood 2+ (NEG) Urine Nitrite POS (NEG) Urine Bilirubin 3+ (NEG) Urine Urobilinogen POS (NEG) Urine Leukocyte Esterase LARGE (NEG) Urine WBC (Auto) >30 /hpf (0-5) Urine RBC (Auto) 10-30 /hpf (0-4) Urine Hyaline Casts (Auto) 1-5 /lpf (0-5) Urine Epithelial Cells (Auto) 0-5 /lpf (0-5) Urine Bacteria (Auto) 4+ (NEG) Urine Crystals AMORPHOUS SEDIMENT (NONE Urine Pathogenic Casts /lpf (0) Urine Yeast (Auto) (NONE PRSENT) White Blood Count 14.21 K/uL (4.8-10.8) Red Blood Count 5.15 M/uL (4.7-6.1) Hemoglobin 15.5 g/dL (14.0-18.0) Hematocrit 45.0 % (42-52) Mean Corpuscular Volume 87.4 fL (80-100) Mean Corpuscular Hemoglobin 30.1 pg (25-34) Mean Corpuscular Hemoglobin Concent 34.4 g/dl (32-36) Platelet Count 198 K/uL (130-400) Mean Platelet Volume 9.9 fL (7.4-10.4) Neutrophils (%) (Auto) 83.0 % Lymphocytes (%) (Auto) 6.2 % Monocytes (%) (Auto) 10.0 % Eosinophils (%) (Auto) 0.3 % Basophils (%) (Auto) 0.1 % Neutrophils # (Auto) 11.79 K/uL (1.4-6.5) Lymphocytes # (Auto) 0.88 K/uL (1.2-3.4) Monocytes # (Auto) 1.42 K/uL (0.11-0.59) Eosinophils # (Auto) 0.04 K/uL (0-0.5) Basophils # (Auto) 0.02 K/uL (0-0.2) RDW Standard Deviation 43.9 fL (36.4-46.3) RDW Coefficient of Variation 13.9 % (11.5-14.5) Immature Granulocyte % (Auto) 0.4 % Immature Granulocyte # (Auto) 0.06 K/uL (0.00-0.02) Prothrombin Time 11.0 SECONDS (9.0-12.0) Prothromb Time International Ratio 1.0 (0.9-1.1) Activated Partial Thromboplast Time 30.2 SECONDS (21.0-31.0) Partial Thromboplastin Ratio 1.2 Anion Gap 9.0 mmol/L (3-11) Est Creatinine Clear Calc Drug Dose 39.8 ml/min Estimated GFR () 48.9 Estimated GFR (Non- 42.2 BUN/Creatinine Ratio 24.2 (10-20) Calcium Level 9.0 mg/dl (8.5-10.1) Total Bilirubin 3.1 mg/dl (0.2-1) Aspartate Amino Transf (AST/SGOT) 18 U/L (15-37) Alanine Aminotransferase (ALT/SGPT) 17 U/L (12-78) Alkaline Phosphatase 60 U/L (45-117) Total Protein 7.6 gm/dl (6.4-8.2) Albumin 3.8 gm/dl (3.4-5.0) Globulin 3.8 gm/dl (2.5-4.0) Albumin/Globulin Ratio 1.0 (0.9-2) Bedside Lactic Acid Venous 1.07 mmol/L (0.90-1.70) Bedside Troponin I 0.040 ng/ml (0-0.045) Laboratory studies as stated above per my review. Medications Administered Medications (Trade) Dose Ordered Sig/Ml Route Start Time Stop Time Status Last Admin Dose Admin Sodium Chloride 1,000 ml @ 999 mls/hr Q1H1M STAT IV 09/19/17 20:47 09/19/17 21:47 DC 09/19/17 21:29 999 MLS/HR Piperacillin Sod/ Tazobactam Sod (Zosyn Iv) 4.5 gm NOW STAT IV 09/19/17 20:59 09/19/17 21:01 DC 09/19/17 21:29 4.5 GM ECG Per My Interpretation Indication: other (irregular beats) Rate (beats per minute): 95 Rhythm: normal sinus Findings: PVC (frequent), left axis deviation, other (nonspecific T wave abnormality) Comparison ECG Date: 06-Sep-2016 Change: no significant change ED Course 2041: Past medical records reviewed. The patient was evaluated in room B2, and a complete history and physical examination were performed. 2046: Sodium Chloride 1000 ml @ 999 mls/hr IV. 2058: Zosyn Iv 4.5 gm IV. 2224: Upon reevaluation, the patient is resting comfortably. I discussed the results and treatment plan with the patient. He verbalized agreement of the treatment plan. The patient will be evaluated for further management. 2233: I discussed the patient's case with Dr. Murphy, [facility] [place] [facility] hospitalist. The patient will be evaluated for further management. Medical Decision Differentials include, but are not limited to; UTI, sepsis, pyelonephritis, electrolyte or metabolic abnormality, cardiac disease. This patient comes in as described above. He was placed in room B2. 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 he has been feeling sick with fever and Rigors and sweats for about 4 days. it has gotten worse. He is taking Cipro which she has at home in case he gets sick. He looks well on exam his T-max at home was over 102, here it is low-grade. IV access established and he was hydrated with IV normal saline. It was noted that he had a regular heartbeat has frequent PVCs on EKG but nothing to suggest acute ischemia. He has no chest pain or shortness of breath. His white count was elevated 14 however his lactic acid is not. Blood cultures were obtained as well as urinalysis and culture. His urinalysis was a cath specimen and does appear very consistent with infection. He was given IV Zosyn as he has has failed outpatient treatment with fluoroquinolones. Given his symptoms, I do believe he needs to be admitted/observe for IV antibiotics and fluids. I have consulted Dr. Cheung to see him in the ER. Medication Reconcilliation Current Medication List: was personally reviewed by me Blood Pressure Screening Patient's blood pressure: Elevated blood pressure Referred to hospitalist Consults Time Called: [phone] Consulting Physician: Dr. Murphy, [facility] [place] [facility] hospitalist Returned Call: [phone] Discussed the patient's case. The patient will be evaluated for further management. Impression Primary Impression: Sepsis Additional Impression: UTI (urinary tract infection) Scribe Attestation The scribe's documentation has been prepared under my direction and personally reviewed by me in its entirety. I confirm that the note above accurately reflects all work, treatment, procedures, and medical decision making performed by me. Departure Information Dispostion Being Evaluated By Hospitalist Referrals Anil Allen M.D. (PCP) Patient Instructions [facility] Problem Qualifiers
[2017-09-19] MEDS ORDERED: MAGNESIUM HYDROXIDE SUSP 30 ML UDC PO PRN (23:45)
[2017-09-19] MEDS ORDERED: ACETAMINOPHEN 325 MG TAB PO PRN (23:45)
[2017-09-19] MEDS ORDERED: ONDANSETRON INJ 2 MG/ML 2 ML VIAL IV PRN (23:45)
[2017-09-19] MEDS ORDERED: ALUMINUM/MAGNESIUM/SIMETH (MAALOX MAX) 30 ML UDC PO PRN (23:45)
[2017-09-19] MEDS ORDERED: PIPERACILL/TAZOBAC CONSULT ACTIVE PRN (23:45)
[2017-09-19] MEDS ORDERED: TEMAZEPAM 7.5 MG CAP PO PRN (23:45)
[2017-09-20] VITALS (7 sets, daily range): BP systolic 105–146; BP diastolic 66–74; PULSE 56–88; TEMP 36.6–37.2; O2SAT 93–96; Ht 182.9 cm; Wt 92.1 kg
--- NOTE | 2017-09-20 00:11 | History and Physical ---
History & Physical Date & Time of Service: Sep 19, 2017 at 23:46 Chief Complaint: Fever, Uti Primary Care Physician: Anil Allen M.D. History of Present Illness Source: patient Anil is a 87 year old male with a PMH of neobladder, kidney stones and recurrent UTI's who presented to [facility] due to recurrent rigors, fatigue and decreased appetite. The patients symptoms started 2 days ago with rigors. He has had a decreased appetite and has not felt like eating. He has also had diaphoresis and he said he sweat through his shirts yesterday evening. He notes he has felt very tired and has not had much energy. He has a history of having a neobladder surgery due to bladder cancer. He notes that he gets UTI's once to twice a year, but his last UTI was 3 weeks ago. He notes that he takes ciprofloxacin whenever he gets these UTI's. He had lithotripsy done approximately 6 weeks ago due to kidney stones found in his urinary bladder. He has never been hospitalized for a UTI before. He self catheterizes every 5 hours due to his santiago-bladder. Past Medical/Surgical History Medical Problems: (1) Bladder cancer (2) Catheter-associated urinary tract infection (3) Chest pain (4) Diarrhea (5) Diverticulitis of intestine with abscess (6) Fever (7) Kidney stones (8) UTI (urinary tract infection) (9) UTI (urinary tract infection) Family History Diabetes mellitus FH: cancer Social History Smoking Status: Never Smoker Alcohol Use: occasionally Drug Use: none Marital Status: Housing status: lives with family Occupational Status: retired Immunizations History of Influenza Vaccine: Yes Influenza Vaccine Date: Oct 17, 2013 History of Tetanus Vaccine?: Unknown History of Pneumococcal: Yes History of Hepatitis B Vaccine: Unknown Allergies Coded Allergies: No Known Allergies (Verified , 11/05/16) Home Medications Scheduled Aspirin (Aspir-81), 81 MG PO QPM Atorvastatin (Lipitor), 10 MG PO QPM Cholecalciferol (Vitamin D3), 1,000 UNITS PO QPM Multivitamin (Multivitamin), 1 TAB PO DAILY Review of Systems 10 systems were reviewed and negative Physical Exam Vital Signs Date Time Temp Pulse Resp B/P (MAP) Pulse Ox O2 Delivery O2 Flow Rate FiO2 09/19/17 22:18 80 18 160/78 09/19/17 21:14 98 09/19/17 20:33 37.6 100 18 131/88 96 Room Air General Appearance: WD/WN, + pertinent finding (patient appears diaphoretic) ENT: hearing grossly normal, pharynx normal Neck: no adenopathy, no JVD, no carotid bruits, trachea midline Respiratory/Chest: lungs clear, no respiratory distress, no accessory muscle use Cardiovascular: regular rate, rhythm, no murmur, normal peripheral pulses Abdomen/GI: normal bowel sounds, non tender, soft Back: normal inspection, no muscle spasm Extremities/Musculoskelatal: normal inspection, no calf tenderness, no pedal edema Neurologic/Psych: alert, normal mood/affect, oriented x 3 Skin: normal color, no rash, + diaphoresis Diagnostics Laboratory Results Results Past 24 Hours Test 09/19/17 20:55 09/19/17 21:15 09/19/17 21:26 Range/Units Urine Color DK YELLOW Urine Appearance CLOUDY CLEAR Urine pH 6.5 4.5-7.5 Urine Specific [place] 1.014 1.000-1.030 Urine Protein 1+ NEG Urine Glucose (UA) NEG NEG Urine Ketones TRACE NEG Urine Occult Blood 2+ NEG Urine Nitrite POS NEG Urine Bilirubin 3+ NEG Urine Urobilinogen POS NEG Urine Leukocyte Esterase LARGE NEG Urine WBC (Auto) >30 0-5 /hpf Urine RBC (Auto) 10-30 0-4 /hpf Urine Hyaline Casts (Auto) 1-5 0-5 /lpf Urine Epithelial Cells (Auto) 0-5 0-5 /lpf Urine Bacteria (Auto) 4+ NEG Urine Crystals AMORPHOUS SEDIMENT NONE PRSENT Urine Pathogenic Casts 0 /lpf Urine Yeast (Auto) NONE PRSENT White Blood Count 14.21 4.8-10.8 K/uL Red Blood Count 5.15 4.7-6.1 M/uL Hemoglobin 15.5 14.0-18.0 g/dL Hematocrit 45.0 42-52 % Mean Corpuscular Volume 87.4 80-100 fL Mean Corpuscular Hemoglobin 30.1 25-34 pg Mean Corpuscular Hemoglobin Concent 34.4 32-36 g/dl Platelet Count 198 130-400 K/uL Mean Platelet Volume 9.9 7.4-10.4 fL Neutrophils (%) (Auto) 83.0 % Lymphocytes (%) (Auto) 6.2 % Monocytes (%) (Auto) 10.0 % Eosinophils (%) (Auto) 0.3 % Basophils (%) (Auto) 0.1 % Neutrophils # (Auto) 11.79 1.4-6.5 K/uL Lymphocytes # (Auto) 0.88 1.2-3.4 K/uL Monocytes # (Auto) 1.42 0.11-0.59 K/uL Eosinophils # (Auto) 0.04 0-0.5 K/uL Basophils # (Auto) 0.02 0-0.2 K/uL RDW Standard Deviation 43.9 36.4-46.3 fL RDW Coefficient of Variation 13.9 11.5-14.5 % Immature Granulocyte % (Auto) 0.4 % Immature Granulocyte # (Auto) 0.06 0.00-0.02 K/uL Prothrombin Time 11.0 9.0-12.0 SECONDS Prothromb Time International Ratio 1.0 0.9-1.1 Activated Partial Thromboplast Time 30.2 21.0-31.0 SECONDS Partial Thromboplastin Ratio 1.2 Sodium Level 134 136-145 mmol/L Potassium Level 4.0 3.5-5.1 mmol/L Chloride Level 104 98-107 mmol/L Carbon Dioxide Level 21 21-32 mmol/L Anion Gap 9.0 3-11 mmol/L Blood Urea Nitrogen 36 7-18 mg/dl Creatinine 1.49 0.60-1.40 mg/dl Est Creatinine Clear Calc Drug Dose 39.8 ml/min Estimated GFR () 48.9 Estimated GFR (Non- 42.2 BUN/Creatinine Ratio 24.2 10-20 Random Glucose 114 70-99 mg/dl Calcium Level 9.0 8.5-10.1 mg/dl Total Bilirubin 3.1 0.2-1 mg/dl Aspartate Amino Transf (AST/SGOT) 18 15-37 U/L Alanine Aminotransferase (ALT/SGPT) 17 12-78 U/L Alkaline Phosphatase 60 45-117 U/L Total Protein 7.6 6.4-8.2 gm/dl Albumin 3.8 3.4-5.0 gm/dl Globulin 3.8 2.5-4.0 gm/dl Albumin/Globulin Ratio 1.0 0.9-2 Bedside Lactic Acid Venous 1.07 0.90-1.70 mmol/L Bedside Troponin I 0.040 0-0.045 ng/ml Microbiology Results 09/19/17 Blood Culture, Received Pending 09/19/17 Blood Culture, Received Pending 09/19/17 Urine Culture, Received Pending Diagnostic Radiology SINGLE VIEW CHEST CLINICAL HISTORY: Sepsis. FINDINGS: An AP, portable, upright chest radiograph is compared to study dated 09/06/2016 and correlated with chest CT dated 05/18/2013. The examination is degraded by portable technique and patient rotation. The heart is enlarged. The pulmonary vasculature is noncongested. There is mild bibasilar atelectasis. The lungs and pleural spaces are otherwise clear. No pneumothorax is seen. The skeletal structures are osteopenic. The bony thorax is grossly intact. IMPRESSION: Cardiomegaly with no acute cardiopulmonary abnormality. EKG Indication: other (irregular beats) Rate (beats per minute): 95 Rhythm: normal sinus Findings: PVC (frequent), left axis deviation, other (nonspecific T wave abnormality) Comparison ECG Date: 06-Sep-2016 Change: no significant change Impression Assessment and Plan Patient is an 87 year old male with a PMH of a neobladder secondary to bladder cancer that presented to [facility] due rigors, decreased appetite and fatigue Complicated urinary tract infection - zosyn IV q6 - await urinary culture and sensitivities - tylenol 500mg q4 for fever - IV NS 130 mls/hr - allow patient to self catheterize q4 hrs Secondary prevention of CVD - continue aspirin and statin DVT prophylaxis - patient ambulatory and likely discharge tomorrow therefore held off for now Full Code Resident Physician Supervision Note: I was present with Dr. Scott during the history and exam. I discussed the case with the resident and agree with the findings and plan as documented in the note. Any exceptions or clarifications are listed here: 87 y/o M Hx HPL, Bladder CA - cystectomy an neobladder - pt self caths PRN. He has Cipro at home which he takes when he feels he has a UTI. He has been taking Cipro for 3 days due to fevers and has not improved. Initial UA is (+). He had a Tmax of 102 and was profusely diaphoretic in the ER. OE AAO x 3 S1,2 R CTAB Abdomen is nontender No CCE P: The pt has been placed on Zosyn pending culture results - IVF and antipyretics provided. He had requested to be DCd, however, we were concerned with his antibiotic failure and impending sepsis. We have continued his Statin and ASA Documented By: Tello Murphy Resuscitation Status VTE Prophylaxis Will order VTE Prophylaxis: Yes
[2017-09-20] MEDS ORDERED: POLYETHYLENE (MIRALAX) 17 GM PACK PO PRN (01:00)
[2017-09-20] MEDS: SODIUM CHLORIDE 0.9% 1000ML 1,000 ML IV SCH ×4 (01:25→23:52)
[2017-09-20] MEDS: PIPERACILL/TAZOBAC IV 3.375 GM in DEXTROSE 5% 100ML 100 ML IV SCH ×3 (02:09→17:34)
[2017-09-20 05:46] LABS: BASO % 0.1 %; BASO ABS # 0.01 K/uL (0-0.2); EOS % 0.9 %; EOS ABS # 0.08 K/uL (0-0.5); HEMATOCRIT 41.3 % (42-52); HEMOGLOBIN 14.1 g/dL (14.0-18.0); IG# 0.03 K/uL (0.00-0.02); LYMPH % 7.6 %; LYMPH ABS # 0.66 K/uL (1.2-3.4); MEAN CELL VOLUME 87.5 fL (80-100); MEAN CORPUSCULAR HEMOGLOBIN 29.9 pg (25-34); MEAN CORPUSCULAR HGB CONC 34.1 g/dl (32-36); MONO % 10.9 %; MONO ABS # 0.95 K/uL (0.11-0.59); NEUT % 80.2 %; NEUT ABS # 6.96 K/uL (1.4-6.5); PLATELET COUNT 131 K/uL (130-400); RED CELL DISTRIBUTION WIDTH CV 13.9 % (11.5-14.5); RED CELL DISTRIBUTION WIDTH SD 44.6 fL (36.4-46.3); WHITE BLOOD COUNT 8.69 K/uL (4.8-10.8)
[2017-09-20 06:22] LABS: CALCIUM 8.3 mg/dl (8.5-10.1); CREATININE 1.46 mg/dl (0.60-1.40); POTASSIUM 4.1 mmol/L (3.5-5.1)
[2017-09-20] MEDS: ASPIRIN 81 MG ECTAB PO SCH ×2 (08:07→20:47)
[2017-09-20] MEDS: ATORVASTATIN 10 MG TAB PO SCH ×2 (08:07→20:47)
[2017-09-20] MEDS: MULTIVITAMIN TAB PO SCH (08:07)
--- NOTE | 2017-09-20 09:11 | Family Medicine Progress Note ---
Progress Note Date of Service Sep 20, 2017. Subjective Pt evaluation today including: conversation w/ patient Found patient resting comfortably this morning. He recounts the events of his HPI. Continues to deny any bladder pain or symptoms throughout this time. This morning, he has no acute concerns. We discussed various options for his treatment going forward. Overall, he says he would prefer to go home so he can get some more sleep (due to some recent lack of sleep over past couple days) but will defer to his treatment team's recommendations. Constitutional: No fever, No chills Respiratory: No cough, No shortness of breath Cardiovascular: No chest pain, No edema Abdomen: No pain, No nausea, No vomiting, No diarrhea Medications Current Inpatient Medications Medications (Trade) Dose Ordered Sig/Ml Route Start Time Stop Time Status Last Admin Dose Admin Acetaminophen (Tylenol Tab) 650 mg Q4H PRN PO 09/19/17 23:45 10/19/17 23:44 Al Hydrox/Mg Hydrox/Simethicone (Maalox Max Susp) 15 ml Q4H PRN PO 09/19/17 23:45 10/19/17 23:44 Magnesium Hydroxide (Milk Of Magnesia Susp) 30 ml Q6H PRN PO 09/19/17 23:45 10/19/17 23:44 Polyethylene (Miralax Powder Packet) 17 gm DAILY PRN PO 09/20/17 01:00 10/20/17 00:59 Ondansetron HCl (Zofran Inj) 4 mg Q6H PRN IV 09/19/17 23:45 10/19/17 23:44 Piperacillin Sod/ Tazobactam Sod 3.375 gm/Dextrose 115 ml @ 28.75 mls/ hr Q8H IV 09/20/17 02:00 09/30/17 01:59 09/20/17 02:09 28.75 MLS/HR Miscellaneous Information (Consult) 1 ea UD PRN N/A 09/19/17 23:45 10/19/17 23:44 Sodium Chloride 1,000 ml @ 130 mls/hr Q7H42M IV 09/20/17 00:45 10/20/17 00:44 09/20/17 01:25 130 MLS/HR Temazepam (Restoril Cap) 7.5 mg HS PRN PO 09/19/17 23:45 10/19/17 23:44 Aspirin (Ecotrin Tab) 81 mg QPM PO 09/20/17 09:00 10/20/17 08:59 09/20/17 08:07 81 MG Atorvastatin Calcium (Lipitor Tab) 10 mg QPM PO 09/20/17 09:00 10/20/17 08:59 09/20/17 08:07 10 MG Multivitamins (Multivitamin Tab) 1 tab DAILY PO 09/20/17 09:00 10/20/17 08:59 09/20/17 08:07 1 TAB Objective Vital Signs Date Time Temp Pulse Resp B/P (MAP) Pulse Ox O2 Delivery O2 Flow Rate FiO2 09/20/17 07:30 36.9 75 18 133/71 (91) 96 09/20/17 00:20 36.6 77 16 146/70 95 Room Air 09/20/17 00:11 36.8 74 21 144/75 95 09/19/17 22:18 80 18 160/78 09/19/17 21:14 98 09/19/17 20:33 37.6 100 18 131/88 96 Room Air Physical Exam Notes: General Appearance: Awake, alert & oriented, pleasantly conversational and comfortable in general, NAD. Not presently diaphoretic. CV: +S1S2 RRR, no murmur. Pulm: Clear to auscultation throughout. Abdomen: +BS, soft, non-tender, non-distended throughout. Extremities: No pedal edema or calf tenderness. Moving all extremities naturally and easily. Neuro: No gross neuro deficits. Laboratory Results 09/20/17 05:36 Red Blood Count 4.72, Mean Corpuscular Volume 87.5, Mean Corpuscular Hemoglobin 29.9, Mean Corpuscular Hemoglobin Concent 34.1, Mean Platelet Volume 9.0, Neutrophils (%) (Auto) 80.2, Lymphocytes (%) (Auto) 7.6, Monocytes (%) (Auto) 10.9, Eosinophils (%) (Auto) 0.9, Basophils (%) (Auto) 0.1, Neutrophils # (Auto ) 6.96, Lymphocytes # (Auto) 0.66, Monocytes # (Auto) 0.95, Eosinophils # (Auto ) 0.08, Basophils # (Auto) 0.01 09/20/17 05:36 Test 09/19/17 20:55 09/19/17 21:15 09/19/17 21:26 09/20/17 05:36 Urine Color DK YELLOW Urine Appearance CLOUDY (CLEAR) Urine pH 6.5 (4.5-7.5) Urine Specific [place] 1.014 (1.000-1.030) Urine Protein 1+ (NEG) Urine Glucose (UA) NEG (NEG) Urine Ketones TRACE (NEG) Urine Occult Blood 2+ (NEG) Urine Nitrite POS (NEG) Urine Bilirubin 3+ (NEG) Urine Urobilinogen POS (NEG) Urine Leukocyte Esterase LARGE (NEG) Urine WBC (Auto) >30 /hpf (0-5) Urine RBC (Auto) 10-30 /hpf (0-4) Urine Hyaline Casts (Auto) 1-5 /lpf (0-5) Urine Epithelial Cells (Auto) 0-5 /lpf (0-5) Urine Bacteria (Auto) 4+ (NEG) Urine Crystals AMORPHOUS SEDIMENT (NONE Urine Pathogenic Casts /lpf (0) Urine Yeast (Auto) (NONE PRSENT) Prothrombin Time 11.0 SECONDS (9.0-12.0) Prothromb Time International Ratio 1.0 (0.9-1.1) Activated Partial Thromboplast Time 30.2 SECONDS (21.0-31.0) Partial Thromboplastin Ratio 1.2 Total Bilirubin 3.1 mg/dl (0.2-1) Aspartate Amino Transf (AST/SGOT) 18 U/L (15-37) Alanine Aminotransferase (ALT/SGPT) 17 U/L (12-78) Alkaline Phosphatase 60 U/L (45-117) Total Protein 7.6 gm/dl (6.4-8.2) Albumin 3.8 gm/dl (3.4-5.0) Globulin 3.8 gm/dl (2.5-4.0) Albumin/Globulin Ratio 1.0 (0.9-2) Bedside Lactic Acid Venous 1.07 mmol/L (0.90-1.70) Bedside Troponin I 0.040 ng/ml (0-0.045) White Blood Count 8.69 K/uL (4.8-10.8) Red Blood Count 4.72 M/uL (4.7-6.1) Hemoglobin 14.1 g/dL (14.0-18.0) Hematocrit 41.3 % (42-52) Mean Corpuscular Volume 87.5 fL (80-100) Mean Corpuscular Hemoglobin 29.9 pg (25-34) Mean Corpuscular Hemoglobin Concent 34.1 g/dl (32-36) Platelet Count 131 K/uL (130-400) Mean Platelet Volume 9.0 fL (7.4-10.4) Neutrophils (%) (Auto) 80.2 % Lymphocytes (%) (Auto) 7.6 % Monocytes (%) (Auto) 10.9 % Eosinophils (%) (Auto) 0.9 % Basophils (%) (Auto) 0.1 % Neutrophils # (Auto) 6.96 K/uL (1.4-6.5) Lymphocytes # (Auto) 0.66 K/uL (1.2-3.4) Monocytes # (Auto) 0.95 K/uL (0.11-0.59) Eosinophils # (Auto) 0.08 K/uL (0-0.5) Basophils # (Auto) 0.01 K/uL (0-0.2) RDW Standard Deviation 44.6 fL (36.4-46.3) RDW Coefficient of Variation 13.9 % (11.5-14.5) Immature Granulocyte % (Auto) 0.3 % Immature Granulocyte # (Auto) 0.03 K/uL (0.00-0.02) Anion Gap 6.0 mmol/L (3-11) Est Creatinine Clear Calc Drug Dose 40.6 ml/min Estimated GFR () 50.1 Estimated GFR (Non- 43.2 BUN/Creatinine Ratio 22.6 (10-20) Calcium Level 8.3 mg/dl (8.5-10.1) Troponin I < 0.015 ng/ml (0-0.045) Assessment and Plan 87-year-old male admitted on 19 September 2017 for recent fever, rigors, fatigue, and a history of a neobladder s/p bladder cancer. PMH: Bladder cancer s/p neobladder surgery in 2007, recurrent UTI, kidney stones , diverticulitis Recurrent UTI: In setting of a neobladder s/p bladder cancer around 2007. Prior fevers have resolved, as has his diaphoresis & borderline tachycardia. Lactate 1.07. Brief review of available prior urine cultures notes recent normal growth. There was a urine culture in February 2016 that had MDR enterococcus. Overnight, WBC dropped from 14 to 8. No abdominal pain or ttp on exam. - Urine culture grew E. coli, with sensitivities pending. Blood cultures pending as well. Remains on zosyn empirically (started 04Aug). Acute kidney injury: Admit creatinine of 1.49. Decreased to 1.46 after IV fluids. Comparison Cr are around 1.1 earlier this year as well as 2016. Monitoring. May impact antibiotic dosing. Elevated total bilirubin: Admit total bili 3.1. No noted jaundice, abdominal pain or RUQ tenderness, and remaining LFTs were unremarkable. - Recommended PCP follow-up for the same. Primary prevention of CVD: Continue home aspirin and Lipitor. Code status: Full code Diet: Regular DVT prophy: SCD's PT/OT: Deferred Disbo: Admit to [facility]. Pending culture results to guide antibiotic choice going forward. - Patient requests that at time of discharge his record from this visit is forwarded to his urologist, Dr. Levi Ceron, of [facility]. Resident Tracking Resident Involvement: Resident Care Provided Care Provided: Adult Hospital Medicine (inpatient) Reviewed: Pt Seen/Exam by Me History no chills Constitutional: denies: fever Respiratory: negative: short of breath Cardiovascular: denies chest pain General Appearance: no apparent distress Respiratory: no respiratory distress Gastrointestinal: soft Neurologic/Psychiatric: alert, oriented x 3 Skin Characteristics: warm/dry Assessment/Plan Resident Physician Supervision Note: I independently interviewed and examined the patient and verified the begum history and physical, reviewed labs and image studies, discussed the case with the resident Dr. Abreu and agree with the findings and care plan.
[2017-09-21 00:14] VITALS: BP 120/66; PULSE 66; TEMP 36.7; O2SAT 94
[2017-09-21] MEDS: PIPERACILL/TAZOBAC IV 3.375 GM in DEXTROSE 5% 100ML 100 ML IV SCH ×2 (01:52→09:37)
[2017-09-21 05:55] LABS: BASO % 0.2 %; BASO ABS # 0.01 K/uL (0-0.2); EOS % 3.2 %; EOS ABS # 0.18 K/uL (0-0.5); HEMATOCRIT 37.7 % (42-52); HEMOGLOBIN 12.7 g/dL (14.0-18.0); IG# 0.02 K/uL (0.00-0.02); LYMPH % 18.7 %; LYMPH ABS # 1.06 K/uL (1.2-3.4); MEAN CELL VOLUME 87.5 fL (80-100); MEAN CORPUSCULAR HEMOGLOBIN 29.5 pg (25-34); MEAN CORPUSCULAR HGB CONC 33.7 g/dl (32-36); MEAN PLATELET VOLUME 9.3 fL (7.4-10.4); MONO % 16.9 %; MONO ABS # 0.96 K/uL (0.11-0.59); NEUT % 60.6 %; NEUT ABS # 3.45 K/uL (1.4-6.5); PLATELET COUNT 154 K/uL (130-400); RED CELL DISTRIBUTION WIDTH CV 13.8 % (11.5-14.5); RED CELL DISTRIBUTION WIDTH SD 44.4 fL (36.4-46.3); WHITE BLOOD COUNT 5.68 K/uL (4.8-10.8)
[2017-09-21 06:49] LABS: CALCIUM 8.1 mg/dl (8.5-10.1); CREATININE 1.16 mg/dl (0.60-1.40); POTASSIUM 4.2 mmol/L (3.5-5.1)
[2017-09-21 07:22] VITALS: BP 144/78; PULSE 55; TEMP 36.5; O2SAT 96
[2017-09-21] MEDS: MULTIVITAMIN TAB PO SCH (07:57)
[2017-09-21] MEDS: SODIUM CHLORIDE 0.9% 1000ML 1,000 ML IV SCH (07:57)
--- NOTE | 2017-09-21 09:28 | Clinical Documentation Query ---
CLINICAL DOCUMENTATION QUERY 87 year old male who self-caths Q4hr at home and presents with UTI In your clinical opinion is this patient being managed for: ( x) Recurrent UTI due to intermittent self-catheterizations. ( ) Not Agree ( ) Other explanation of clinical findings (No explanation is considered a No Response) ( ) Unable to determine ( ) Need to Discuss (Phone CDS or qliq) (No discussion is considered a No Response) The medical record reflects the following clinical findings, treatment, and risk factors. Clinical Indicators: UTI +E.coli, Fever, Leukocytosis, tachycardia, Treatment: IV Zosyn, IVF's Risk Factors: Self catheterizations, recurrent UTI's Please clarify and document your clinical opinion in the progress notes and discharge summary. Terms such as "probable", "suspected", "likely", "questionable", "possible", or "still to be ruled out" are acceptable. IF IN AGREEMENT, YOU MUST DOCUMENT ABOVE DIAGNOSTIC STATEMENT IN DAILY PROGRESS NOTES AND DISCHARGE SUMMARY. This document is not part of the patient's record. Thank You, Vishal Pina, RN [phone] & via qlicCONNECT
[2017-09-21] MEDS ORDERED: CEPH500C2 PO (10:09)
--- NOTE | 2017-09-21 10:15 | Discharge Instructions ---
Discharge Instructions Date of Service Sep 21, 2017. Admission Reason for Admission: UTI Discharge Discharge Diagnosis / Problem: UTI Discharge Goals Goal(s): Decrease discomfort, Improve function, Increase independence, Improve disease control, Improve nutritional status Activity Recommendations Activity Limitations: per Instructions/Follow-up section . Instructions / Follow-Up Instructions / Follow-Up Your urine was growing E. Coli bacteria and you have been diagnosed with a urinary tract infection. The treatment for urinary tract infections is an antibiotic. You are being discharged on an Antibiotic called Keflex. This antibiotic has been sent to your pharmacy. Please take this antibiotic as prescribed. Information on Keflex and UTIs will be printed for you on discharge. Please read this information carefully. We recommend that you follow up with your PCP within one week. At this visit, you can ask Dr. Allen to supply you with an antibiotic to have "on hand" for when you feel you are getting a urinary tract infection that is not resolving on its own. Drinking lots of water and adding cranberry juice can help to flush bacteria from your system. Return to the ER if you experience high grade fevers or a severe worsening of your symptoms (blood in the urine and/or frequent burning urinations). Current Hospital Diet Patient's current hospital diet: Regular Diet Discharge Diet Recommended Diet: Regular Diet Pending Studies Studies pending at discharge: no Medical Emergencies . Who to Call and When: Medical Emergencies: If at any time you feel your situation is an emergency, please call 911 immediately. . Non-Emergent Contact Non-Emergency issues call your: Primary Care Provider . . "Provider Documentation" section prepared by Yonis aD Silva. . Resident Involvement: Resident Care Provided Care Provided: Adult Hospital Medicine
[2017-09-21 11:10] VITALS: BP 144/78; PULSE 55; TEMP 36.5; O2SAT 96
--- NOTE | 2017-09-21 19:24 | Discharge Summary ---
Discharge Summary Date of Service Sep 21, 2017. Discharge Summary Admission Date: Sep 19, 2017 at 23:44 Discharge Date: Sep 21, 2017 Discharge Disposition: Home Principal Diagnosis: Complicated UTI Problems/Secondary Diagnoses: Bladder cancer s/p neobladder surgery in 2007, recurrent UTI, kidney stones, diverticulitis, VASILIY Immunizations: Have You Had Influenza Vaccine: Yes Influenza Vaccine Date: Oct 17, 2013 History of Tetanus Vaccine?: Unknown History of Pneumococcal: Yes History of Hepatitis B Vaccine: Unknown Medication Reconciliation New Medications: Cephalexin Monohydrate (Keflex) 500 Mg Cap 500 MG PO TID for 7 Days, #21 CAP Continued Medications: Aspirin (Aspir-81) 81 Mg Tab 81 MG PO QPM, TAB 3 Refills Atorvastatin (Lipitor) 10 Mg Tab 10 MG PO QPM Cholecalciferol (Vitamin D3) 1,000 Unit Tab 1000 UNITS PO QPM Multivitamin (Multivitamin) Tab 1 TAB PO DAILY, TAB Discharge Exam Review of Systems: Constitutional: No fever, No chills Respiratory: No cough, No shortness of breath Cardiovascular: No chest pain Genitourinary - Male: No hematuria, No dysuria, No urinary retention Physical Exam: General Appearance: WD/WN, no apparent distress Eyes: PERRL, EOMI ENT: hearing grossly normal Neck: no adenopathy Respiratory/Chest: lungs clear, normal breath sounds, no respiratory distress Cardiovascular: regular rate, rhythm, no edema Abdomen / GI: normal bowel sounds, non tender, soft Extremities: normal inspection, no calf tenderness, no pedal edema Neurologic/Psychiatric: alert, normal mood/affect, oriented x 3 Skin: normal color, warm/dry, no rash Hospital Course 87-year-old male admitted on 19 September 2017 for fever, rigors, fatigue, and a history of a neobladder s/p bladder cancer. PMH: Bladder cancer s/p neobladder surgery in 2007, recurrent UTI, kidney stones , diverticulitis Recurrent UTI: -In setting of a neobladder s/p bladder cancer around 2007. -Fevers have resolved, as has his diaphoresis & borderline tachycardia. Lactate 1.07. -WBC improved on zosyn. No abdominal pain or ttp on exam. -Urine culture grew E. coli, with resistance to cipro and levaquin. Blood cultures NGTD. -Sent home on keflex 500 tid x 7 days -Recommend he follow with PCP for bactrim to have on hand in case symptoms arise to prevent further hospital admission Acute kidney injury: -Admit creatinine of 1.49. Decreased to 1.16 on day of discharge. Elevated total bilirubin: -Admit total bili 3.1. No noted jaundice, abdominal pain or RUQ tenderness, and remaining LFTs were unremarkable. -Recommended PCP follow-up for the same. Primary prevention of CVD: Continue home aspirin and Lipitor. Code: FULL - Patient requests that at time of discharge his record from this visit is forwarded to his urologist, Dr. Levi Ceron, of [facility]. Resident Physician Supervision Note: I interviewed and examined the patient. Discussed with Dr. Dong and agree with findings and plan as documented in the note. Any exceptions or clarifications are listed here: None Documented By: Asim Parikh feeling better ok to go home all questions answered to the best of my ability vitals noted nad breathing unlabored no pallor or icterus complicated UTI - fortunately sensitive to all but quinolones. safe for home as above. outpt f/u w PCP and urology Total Time Spent: Less than 30 minutes This includes examination of the patient, discharge planning, medication reconciliation, and communication with other providers. Discharge Instructions Please refer to the electronic Patient Visit Report (Discharge Instructions) for additional information. Additional Copies To Anil Allen M.D.; Toro Ceron MD Resident Tracking Resident Involvement: Resident Care Provided Care Provided: Adult Hospital Medicine
--- NOTE | 2017-09-29 06:00 | EDITING REQUIRED CODING QUERY ---
CODING QUERY To promote full compliance with coding requirements relating to patient care, provider participation is requested in all cases of manager of internal audit uncertainty. Please assist us with the question(s) below: Coding Question(s): Patient admitted with UTI in setting of Neobladder. Please document, if known or suspected, the etiology of this recurrent UTI. Thanks for your help! - Josiah Hdez [facility] Physician's Response(s): E. Coli Principal Diagnosis: "_that condition established after study, to be chiefly responsible for occasioning the admission of the patient to the hospital for care." Co-Existing Principal Diagnosis: "_when two or more diagnoses equally meet the criteria for principal diagnosis as determined by the circumstances of admission, diagnostic work up, and/or therapy provided, and the Alphabetic Index, Tabular List, or another coding guideline does not provide sequencing direction, any one of the diagnoses may be sequenced first." "When the physician has documented what appears to be a current diagnosis in the body of the record, but has not included the diagnosis in the final diagnostic statement, the physician should be asked whether the diagnosis should be added." (Source Coding [facility] 2 QTR90. p3-4)
== END 2017-09-21 13:04 | disposition home or self-care (01) | DRG 690 ==
LOC: C.EDB 20:25 → C.MED 23:44 → ENRESERV 23:54
PROVIDERS: ADMIT Internal Medicine; ATTEND Family Medicine
DX: N39.0 Urinary tract infection, site not specified (principal); Z85.51 Personal history of malignant neoplasm of bladder; B96.20 Unspecified Escherichia coli [E. coli] as the cause of diseases classified elsewhere; Z83.3 Family history of diabetes mellitus; Z87.442 Personal history of urinary calculi; Z87.440 Personal history of urinary (tract) infections